=== PATIENT | female | born 1935 | race Caucasian/White ===

== ENCOUNTER 2016-05-21 16:04 | Emergency (ER) | payer MEDICARE ==
[2016-05-21 16:28] VITALS: BP 131/76
[2016-05-21] MEDS ORDERED: Ondansetron INJ* 2 MG/ML VIAL IV ONE (16:34)
[2016-05-21] MEDS ORDERED: Meclizine TAB* 12.5 MG PO ONE (16:34)
--- NOTE | 2016-05-21 16:59 | RAD ---
INDICATION: Dizziness. COMPARISON: Comparison is made with a prior MRI of the brain from January 22, 2014. TECHNIQUE: Contiguous axial sections of the brain were obtained from the skull base to the vertex without contrast. FINDINGS: The ventricles, cisterns and sulci are enlarged consistent with diffuse atrophy. There are multiple focal areas of decreased density in the subcortical and periventricular white matter suggestive of moderate chronic small vessel ischemic changes. There is no evidence for hemorrhage. No significant focal osseous abnormality is seen. The visualized portion of the paranasal sinuses and mastoid air cells appear clear. IMPRESSION: 1. NO EVIDENCE FOR GROSS ACUTE INFARCT, MASS EFFECT OR HEMORRHAGE. 2. ATROPHY AND FINDINGS CONSISTENT WITH MODERATE CHRONIC SMALL VESSEL ISCHEMIC CHANGES.
--- NOTE | 2016-05-21 17:37 | RAD ---
INDICATION: Dizziness. COMPARISON: Comparison is made with a prior study from December 02, 2015. Correlation is also made with a prior exam from December 28, 2012. TECHNIQUE: AP and lateral views of the chest were obtained. FINDINGS: The heart is within normal limits in size. There is a prosthetic heart valve present. The lungs are underinflated. There is a calcified granuloma which projects over the left upper lobe which is unchanged. There is a small infiltrate at the right lung base. No pleural effusion is seen. The patient is status post left axillary node dissection. IMPRESSION: SMALL RIGHT BASILAR INFILTRATE.
[2016-05-21] MEDS ORDERED: Meclizine TAB* 12.5 MG ONE (18:13)
[2016-05-21 18:20] LABS: Hematocrit 39 % (35-47); Hemoglobin 12.8 g/dl (12.0-16.0); Mean Corpuscular HGB Conc 33 g/dl (31-36); Mean Corpuscular Hemoglobin 30 pg (27-31); Mean Corpuscular Volume 91 fL (80-97); Mean Platelet Volume 9 um3 (7.4-10.4); Red Blood Count 4.26 10^6/ul (4.0-5.4); Red Cell Distribution Width 14 % (10.5-15); White Blood Count 7.7 10^3/ul (3.5-10.8)
[2016-05-21] MEDS ORDERED: DOXYcycline CAP(*) 100 MG PO ONE (18:27)
[2016-05-21 18:38] LABS: Albumin 4.2 g/dL (3.2-5.2); BUN/Creatinine Ratio 20.2 (8-20); C Reactive Protein 1.71 mg/L (< 5.00); Calcium 9.2 mg/dL (8.6-10.3); EGFR African American 73.5 (>60); EGFR Non-African American 57.2 (>60); Globulin 2.8 g/dL (2-4); Magnesium 2.2 mg/dL (1.9-2.7); Potassium 3.4 mmol/L (3.5-5.0); Total Bilirubin 0.3 mg/dL (0.2-1.0)
[2016-05-21 18:39] LABS: Urine Bacteria Absent (Absent); Urine Bilirubin Negative (Negative); Urine Glucose Negative (Negative); Urine Nitrite Negative (Negative)
[2016-05-21 18:53] LABS: TSH (Thyroid Stimulating Horm) 1.73 mcIU/mL (0.34-5.60)
[2016-05-21] MEDS ORDERED: Potassium Chlor TAB* 20 MEQ TAB.ER PO ONE (19:01)
--- NOTE | 2016-05-21 20:08 | ED ---
Edward Mahmood Billy, scribed for Issa Cisneros MD on 05/21/16 at 1633 . Dizziness - HPI Summary HPI Summary: Patient is an 80 year-old male coming to [facility] presenting with onset of room- spinning dizziness starting earlier this morning while she was at [facility]. She states that her symptoms are worse with positional changes. She also reports a mild left frontal headache and blurred vision. Nausea, denies vomiting. She denies any CP, palpitations. She denies any pain. Denies sore throat, earache, or nasal congestion. She states she is unable to walk, secondary to dizziness. She has had similar episodes in the past. - History Of Current Complaint Chief Complaint: EDDizziness Stated Complaint: DIZZINESS Time Seen by Provider: 05/21/16 16:30 Hx Obtained From: Patient Onset/Duration: Still Present, Gradually Timing: Constant Severity Initially: Moderate Severity Currently: Moderate Character: Room Spinning Aggravating Factor(s): Position Change Alleviating Factor(s): Nothing Associated Signs And Symptoms: Positive: Nausea, Visual Changes, Inability to Walk, Other: - headache. Negative: Vomiting, Chest Pain, Palpitations - Allergies/Home Medications Allergies/Adverse Reactions: Allergies Allergy/AdvReac Type Severity Reaction Status Date / Time Celecoxib [From Celebrex] Allergy Hives Verified 12/02/15 11:52 Erythromycin Allergy Hives Verified 12/02/15 11:52 Latex Allergy Hives Verified 12/02/15 11:52 Levofloxacin [From Levaquin] Allergy Rash Verified 12/02/15 11:52 Methylprednisolone Allergy Hives Verified 12/02/15 11:52 NSAIDs Allergy Hives Verified 12/02/15 11:52 Penicillin G Allergy Hives Verified 12/02/15 11:52 Pseudoephedrine Allergy Hallucinati Verified 12/02/15 11:52 ons Rivastigmine [From Exelon] Allergy Hallucinati Verified 12/02/15 11:52 ons Tomato Allergy Unknown Verified 12/02/15 11:52 Reaction Details custaceans Allergy Vomiting Uncoded 12/02/15 11:52 lactose intolerant Allergy Unknown Uncoded 12/02/15 11:52 Reaction Details peanut butter Allergy Unknown Uncoded 12/02/15 11:52 Reaction Details PMH/Surg Hx/FS Hx/Imm Hx Endocrine/Hematology History: Reports: Hx Thyroid Disease Denies: Hx Diabetes Cardiovascular History: Reports: Hx Hypertension, Other Cardiovascular Problems/ Disorders - AORTIC VALVE REPLACEMENT Denies: Hx Congestive Heart Failure, Hx Deep Vein Thrombosis, Hx Myocardial Infarction, Hx Pacemaker/ICD Respiratory History: Reports: Hx Asthma Denies: Hx Chronic Obstructive Pulmonary Disease (COPD), Hx Lung Cancer, Hx Pneumonia, Hx Pulmonary Embolism, Other Respiratory Problems/Disorders GI History: Denies: Hx Gall Bladder Disease, Hx Gastrointestinal Bleed, Hx Ulcer, Hx Urosepsis History: Denies: Hx Kidney Stones, Hx Renal Disease Musculoskeletal History: Reports: Hx Osteoporosis Sensory History: Reports: Hx Hearing Aid Neurological History: Reports: Hx Dementia Denies: Hx Migraine, Hx Seizures, Hx Transient Ischemic Attacks (TIA) Psychiatric History: Denies: Hx Anxiety, Hx Depression, Hx Panic Disorder, Hx Schizophrenia, Hx Bipolar Disorder - Cancer History Cancer Type, Location and Year: breast cancer Hx Chemotherapy: Yes - 2003 AFTER RT MASTECTOMY Hx Radiation Therapy: Yes - 1994 S/P LT LUMPECTOMY & RADIATION - Surgical History Surgery Procedure, Year, and Place: 1994 LT LUMPECTOMY S/P RADIATION NO CHEMOTHERAPY. 2003 RT MASTECTOMY S/P CHEMOTHERAPY FOR 2 YRS. HEART VALVE REPLACEMENT PIG VALVE (PORCINE). HIP REPLACEMENT. BILATERAL KNEE REPLACEMENT Infectious Disease History: Denies: Hx Clostridium Difficile, Hx Hepatitis, Hx Human Immunodeficiency Virus (HIV), Hx of Known/Suspected MRSA, Hx Shingles, Hx Tuberculosis, Traveled Outside the [place] in Last 30 Days - Family History Known Family History: Positive: Cardiac Disease, Hypertension, Diabetes - Social History Alcohol Use: None Substance Use Type: Reports: None Hx Tobacco Use: No Smoking Status (MU): Never Smoked Tobacco Review of Systems Positive: Blurred Vision Negative: Sore Throat, Ear Ache, Nasal Discharge Negative: Palpitations, Chest Pain Positive: Nausea. Negative: Vomiting Neurological: Other - dizziness Positive: Headache All Other Systems Reviewed And Are Negative: Yes Physical Exam Triage Information Reviewed: Yes Vital Signs On Initial Exam: Initial Vitals Temp Pulse Resp BP Pulse Ox 98.2 F 88 20 131/76 96 05/21/16 16:22 05/21/16 16:22 05/21/16 16:22 05/21/16 16:22 05/21/16 16:22 Vital Signs Reviewed: Yes Diagnostics - Vital Signs Vital Signs Temp Pulse Resp BP Pulse Ox 05/21/16 16:22 98.2 F 88 20 131/76 96 - Laboratory Lab Results: Lab Results 05/21/16 05/21/16 05/21/16 Range/Units 17:27 17:44 17:44 WBC 7.7 (3.5-10.8) 10^3/ul RBC 4.26 (4.0-5.4) 10^6/ul Hgb 12.8 (12.0-16.0) g/dl Hct 39 (35-47) % MCV 91 (80-97) fL MCH 30 (27-31) pg MCHC 33 (31-36) g/dl RDW 14 (10.5-15) % Plt Count 232 (150-450) 10^3/ul MPV 9 (7.4-10.4) um3 Neut % (Auto) 55.3 (38-83) % Lymph % (Auto) 32.4 (25-47) % [place] % (Auto) 10.8 H (1-9) % Eos % (Auto) 0.9 (0-6) % Baso % (Auto) 0.6 (0-2) % Absolute Neuts (auto) 4.3 (1.5-7.7) 10^3/ul Absolute Lymphs (auto) 2.5 (1.0-4.8) 10^3/ul Absolute Monos (auto) 0.8 (0-0.8) 10^3/ul Absolute Eos (auto) 0.1 (0-0.6) 10^3/ul Absolute Basos (auto) 0 (0-0.2) 10^3/ul Absolute Nucleated RBC 0 10^3/ul Nucleated RBC % 0 Sodium 137 (133-145) mmol/L Potassium 3.4 L (3.5-5.0) mmol/L Chloride 102 (101-111) mmol/L Carbon Dioxide 28 (22-32) mmol/L Anion Gap 7 (2-11) mmol/L BUN 19 (6-24) mg/dL Creatinine 0.94 (0.51-0.95) mg/dL Est GFR ( Amer) 73.5 (>60) Est GFR (Non-Af Amer) 57.2 (>60) BUN/Creatinine Ratio 20.2 H (8-20) Glucose 102 H (70-100) mg/dL Lactic Acid (0.5-2.0) mmol/L Calcium 9.2 (8.6-10.3) mg/dL Magnesium 2.2 (1.9-2.7) mg/dL Total Bilirubin 0.30 (0.2-1.0) mg/dL AST 18 (13-39) U/L ALT 11 (7-52) U/L Alkaline Phosphatase 55 (34-104) U/L Troponin I 0.00 (<0.04) ng/mL C-Reactive Protein 1.71 (< 5.00) mg/L B-Natriuretic Peptide ( - 100) pg/mL Total Protein 7.0 (6.4-8.9) g/dL Albumin 4.2 (3.2-5.2) g/dL Globulin 2.8 (2-4) g/dL Albumin/Globulin Ratio 1.5 (1-3) TSH 1.73 (0.34-5.60) mcIU/mL Urine Color Yellow Urine Appearance Cloudy Urine pH 7.0 (5-9) Ur Specific [place] 1.014 (1.010-1.030) Urine Protein Negative (Negative) Urine Ketones Negative (Negative) Urine Blood Negative (Negative) Urine Nitrate Negative (Negative) Urine Bilirubin Negative (Negative) Urine Urobilinogen Negative (Negative) Ur Leukocyte Esterase Trace H (Negative) Urine WBC (Auto) 1+(6-10/hpf) H (Absent) Urine RBC (Auto) Absent (Absent) Urine Bacteria Absent (Absent) Urine Glucose Negative (Negative) 05/21/16 05/21/16 Range/Units 17:44 17:44 WBC (3.5-10.8) 10^3/ul RBC (4.0-5.4) 10^6/ul Hgb (12.0-16.0) g/dl Hct (35-47) % MCV (80-97) fL MCH (27-31) pg MCHC (31-36) g/dl RDW (10.5-15) % Plt Count (150-450) 10^3/ul MPV (7.4-10.4) um3 Neut % (Auto) (38-83) % Lymph % (Auto) (25-47) % [place] % (Auto) (1-9) % Eos % (Auto) (0-6) % Baso % (Auto) (0-2) % Absolute Neuts (auto) (1.5-7.7) 10^3/ul Absolute Lymphs (auto) (1.0-4.8) 10^3/ul Absolute Monos (auto) (0-0.8) 10^3/ul Absolute Eos (auto) (0-0.6) 10^3/ul Absolute Basos (auto) (0-0.2) 10^3/ul Absolute Nucleated RBC 10^3/ul Nucleated RBC % Sodium (133-145) mmol/L Potassium (3.5-5.0) mmol/L Chloride (101-111) mmol/L Carbon Dioxide (22-32) mmol/L Anion Gap (2-11) mmol/L BUN (6-24) mg/dL Creatinine (0.51-0.95) mg/dL Est GFR ( Amer) (>60) Est GFR (Non-Af Amer) (>60) BUN/Creatinine Ratio (8-20) Glucose (70-100) mg/dL Lactic Acid 0.7 (0.5-2.0) mmol/L Calcium (8.6-10.3) mg/dL Magnesium (1.9-2.7) mg/dL Total Bilirubin (0.2-1.0) mg/dL AST (13-39) U/L ALT (7-52) U/L Alkaline Phosphatase (34-104) U/L Troponin I (<0.04) ng/mL C-Reactive Protein (< 5.00) mg/L B-Natriuretic Peptide 110 H ( - 100) pg/mL Total Protein (6.4-8.9) g/dL Albumin (3.2-5.2) g/dL Globulin (2-4) g/dL Albumin/Globulin Ratio (1-3) TSH (0.34-5.60) mcIU/mL Urine Color Urine Appearance Urine pH (5-9) Ur Specific Anderson (1.010-1.030) Urine Protein (Negative) Urine Ketones (Negative) Urine Blood (Negative) Urine Nitrate (Negative) Urine Bilirubin (Negative) Urine Urobilinogen (Negative) Ur Leukocyte Esterase (Negative) Urine WBC (Auto) (Absent) Urine RBC (Auto) (Absent) Urine Bacteria (Absent) Urine Glucose (Negative) Result Diagrams: 05/21/16 17:44 05/21/16 17:44 Lab Statement: Any lab studies that have been ordered have been reviewed, and results considered in the medical decision making process. - Radiology CXR Radiology Interpretation Completed By: Radiologist - Small right basilar infiltrate. - CT brain CT Interpretation Completed By: Radiologist - 1. NO EVIDENCE FOR GROSS ACUTE INFARCT, MASS EFFECT OR HEMORRHAGE. 2. ATROPHY AND FINDINGS CONSISTENT WITH MODERATE CHRONIC SMALL VESSEL ISCHEMIC CHANGES. Dizzy Course/Dx - Course Assessment/Plan: Patient is an 80 year-old male coming to [facility] presenting with onset of room-spinning dizziness starting earlier this morning while she was at [employer]. She states that her symptoms are worse with positional changes. She also reports a mild left frontal headache and blurred vision. Nausea, denies vomiting. She denies any CP, palpitations. She denies any pain. Denies sore throat, earache, or nasal congestion. She states she is unable to walk, secondary to dizziness. She has had similar episodes in the past. Bloodwork WNL except for potassium of 3.4. UA positive for UTI. CXR shows early pneumonia. CT brain shows no acute intracranial pathology. In the ED course, patient was given IV fluids, Zofran for N/V, and antivert for dizziness, and doxycycline for pneumonia. The patient has multiple allergies, which is why I chose doxycycline. After these medications, her symptoms have improved. She is no longer dizzy. She will be discharged with her daughter and son to follow up with PCP. She was given Rx for meclizine and doxycycline. I discussed all the findings and test results with the patient. Patient was instructed to return to the emergency room immediately if any of the symptoms return or worsens. Patient understands and agrees. Plan of care was discussed with the patient and patient understands and agrees with the plan of care. All questions were answered at patient satisfaction. There were no further complaints or concerns. Patient is alert and oriented x 3. Patient vital signs are stable. Patient is to follow up with primary care physician in the next 2 to 3 days. Patient understands and agrees. - Diagnoses Provider Diagnoses: Vertigo, UTI (urinary tract infection), Pneumonia Discharge - Discharge Plan Condition: Stable Disposition: HOME Prescriptions: DOXYcycline CAP(*) [DOXYcycline 100MG CAP(*)] 100 mg PO BID #20 cap Meclizine TAB* [Antivert 12.5 TAB*] 25 mg PO TID PRN #20 tab PRN Reason: Vertigo Patient Education Materials: Urinary Tract Infection in Women (ED), Vertigo (ED ), Pneumonia (ED) Referrals: Yudith Grey MD [Primary Care Provider] - The documentation as recorded by the Edward gordon Billy accurately reflects the service I personally performed and the decisions made by me, Issa Cisnreos MD.
== END 2016-05-21 20:09 | disposition home or self-care (01) ==
LOC: ED 16:04
DX: R42 Dizziness and giddiness (principal); H53.8 Other visual disturbances; R11.0 Nausea; R51 Headache
CPT/HCPCS: 36415; 70450; 71020; 80053; 81003; 81015; 83605; 83735; 83880; 84443; 84484; 85025; 86140; 87086; 96374; 99282; A9270-GY; J2405

== ENCOUNTER 2017-11-22 14:09 | Emergency (ER) | payer MEDICARE, OTHER ==
[2017-11-22 14:29] VITALS: BP 122/72
--- NOTE | 2017-11-22 15:13 | ED ---
Head Injury - HPI Summary HPI Summary: This is heidi Bowen documenting for attending Leon Calixto MD. This patient is an 82 year old F presenting to [facility] [place] with a chief complaint of a fall 11/19/2017. The patient remembers falling and describes the room she fell in as being completely dark. However, her daughter says that the room is not typically completely dark. The patients aid said that she did not appear concussed. The patient reports pain in her L eye, neck pain, an abrasion and bruising on her forehead and left eye, and her daughter reports worsening confusion. Patient denies fever, chills, weakness, and numbness. The daughter reports that the patient has started forgetting what she is doing mid-task. The patient went to get her walker but forgot intermediate there. The daughter also had to remind her to eat her lunch and take pills earlier today. The patient is not on any blood thinners. 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 She denies any PMHx of A Fib or irregular heart rhythm. She has had a CABG with Valentina Lagunas MD. The patient is not on any blood thinners. - History Of Current Complaint Chief Complaint: UCHeadInjury Stated Complaint: FELL HIT HEAD Time Seen by Provider: 11/22/17 14:44 Hx Obtained From: Patient, Family/[employer] Scientist - Daughter Mechanism Of Injury: Fall From A Standing Position Onset/Duration: Started Days Ago - 11/19/2017 Onset of Pain: Immediate, Post Accident Severity Currently: Mild Severity Initially: Mild Pain Intensity: 0 Pain Scale Used: 0-10 Numeric Location of Head Injury: Other: - L side of forehead and above the L eye Associated Signs And Symptoms: Confusion - worsening, Neck Pain, Bruising - on forehead and above L eye, Other: - abrasian on forehead and above L eye. Denies fever, chills, weakness, and numbness - Allergies/Home Medications Allergies/Adverse Reactions: Allergies Allergy/AdvReac Type Severity Reaction Status Date / Time celecoxib [From Celebrex] Allergy Hives Verified 11/22/17 14:44 erythromycin base Allergy Hives Verified 11/22/17 14:44 latex Allergy Hives Verified 11/22/17 14:44 levofloxacin [From Levaquin] Allergy Rash Verified 11/22/17 14:44 methylprednisolone Allergy Hives Verified 11/22/17 14:44 NSAIDS (Non-Steroidal Allergy Hives Verified 11/22/17 14:44 Anti-Inflamma pseudoephedrine Allergy Hallucinati Verified 11/22/17 14:44 ons rivastigmine [From Exelon] Allergy Hallucinati Verified 11/22/17 14:44 ons tomato Allergy Unknown Verified 11/22/17 14:44 Reaction Details custaceans Allergy Vomiting Uncoded 11/22/17 14:44 lactose intolerant Allergy Unknown Uncoded 11/22/17 14:44 Reaction Details peanut butter Allergy Unknown Uncoded 11/22/17 14:44 Reaction Details PMH/Surg Hx/FS Hx/Imm Hx Endocrine/Hematology History: Reports: Hx Thyroid Disease Denies: Hx Diabetes Cardiovascular History: Reports: Hx Hypertension, Other Cardiovascular Problems/ Disorders - AORTIC VALVE REPLACEMENT Denies: Hx Congestive Heart Failure, Hx Deep Vein Thrombosis, Hx Myocardial Infarction, Hx Pacemaker/ICD Respiratory History: Reports: Hx Asthma Denies: Hx Chronic Obstructive Pulmonary Disease (COPD), Hx Lung Cancer, Hx Pneumonia, Hx Pulmonary Embolism, Other Respiratory Problems/Disorders GI History: Denies: Hx Gall Bladder Disease, Hx Gastrointestinal Bleed, Hx Ulcer, Hx Urosepsis History: Denies: Hx Kidney Stones, Hx Renal Disease Musculoskeletal History: Reports: Hx Osteoporosis Sensory History: Reports: Hx Hearing Aid Neurological History: Reports: Hx Dementia Denies: Hx Migraine, Hx Seizures, Hx Transient Ischemic Attacks (TIA) Psychiatric History: Denies: Hx Anxiety, Hx Depression, Hx Panic Disorder, Hx Schizophrenia, Hx Bipolar Disorder - Cancer History Cancer Type, Location and Year: Breast cancer Hx Chemotherapy: Yes - 2004 AFTER RT MASTECTOMY Hx Radiation Therapy: Yes - 1994 S/P LT LUMPECTOMY & RADIATION - Surgical History Surgery Procedure, Year, and Place: 1994 LT LUMPECTOMY S/P RADIATION NO CHEMOTHERAPY. 2003 RT MASTECTOMY S/P CHEMOTHERAPY FOR 2 YRS. HEART VALVE REPLACEMENT PIG VALVE (PORCINE). HIP REPLACEMENT. BILATERAL KNEE REPLACEMENT Infectious Disease History: No Infectious Disease History: Denies: Hx Clostridium Difficile, Hx Hepatitis, Hx Human Immunodeficiency Virus (HIV), Hx of Known/Suspected MRSA, Hx Shingles, Hx Tuberculosis, Traveled Outside the [place] in Last 30 Days - Family History Known Family History: Positive: Cardiac Disease, Hypertension, Diabetes, Other - Stroke, Alzheimer's - Social History Occupation: Retired Lives: Assisted Living - Lives independently at [place] with an aid checking in on her Alcohol Use: None Substance Use Type: Reports: None Hx Tobacco Use: No Smoking Status (MU): Never Smoked Tobacco Review of Systems Negative: Fever, Chills Positive: Other - pain in L eye Positive: Other - neck pain, an abrasion and bruising on her forehead and left eye Neurological: Other - Worsening confusion. Aphasia from Pick's disease. Negative: Weakness, Numbness All Other Systems Reviewed And Are Negative: Yes Physical Exam - Summary Physical Exam Summary: General: well-appearing, no pain distress Skin: warm, color reflects adequate perfusion, dry Head: Normal. Ecchymosis around left forehead. Eyes: EOMI, MARILEE. Ecchymosis around left orbit. ENT: normal Neck: supple, nontender Respiratory: CTA, breath sounds present Cardiovascular: RRR Abdomen: soft, nontender Bowel: present Musculoskeletal: normal, strength/ROM intact Neurological: sensory/motor intact, A&O x3 Psychological: affect/mood appropriate Triage Information Reviewed: Yes Vital Signs On Initial Exam: Initial Vitals Temp Pulse Resp BP Pulse Ox 97.9 F 106 18 122/72 100 11/22/17 14:23 11/22/17 14:23 11/22/17 14:23 11/22/17 14:23 11/22/17 14:23 Vital Signs Reviewed: Yes Diagnostics - Vital Signs Vital Signs Temp Pulse Resp BP Pulse Ox 11/22/17 14:23 97.9 F 106 18 122/72 100 - Laboratory Lab Statement: Any lab studies that have been ordered have been reviewed, and results considered in the medical decision making process. - CT Cervical Spine CT CT Interpretation Completed By: Radiologist - No fracture of the cervical spine is noted. Mild grade 1 spondylolisthesis of C4 on 5 is noted likely due to facet hypertrophy. 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 Physician has reviewed this report. Brain CT CT Interpretation Completed By: Radiologist - CORTICAL ATROPHY AND CHRONIC MICROVASCULAR ISCHEMIC CHANGES. NO ACUTE FINDINGS. Physician has reviewed this report. Maxillofacial CT CT Interpretation Completed By: Radiologist - NO ACUTE FACIAL BONE FRACTURE OR OTHER SPECIFIC ACUTE FINDINGS. Physician has reviewed this report. Head Injury Course/Dx Course Of Treatment: DISCUSSED WITH PATIENT; ED EVAL VERSES CT BRAIN AND UA IN CLINIC WITH LABS WITH RESULTS TOMORROW. THE PATIENT AND DAUGHTER PREFER CLINIC EVAL. THEY WILL GO TO THE ED IF WORSE OVERNIGHT. DISCUSSED CT AND UA RESULTS WITH THE PATIENT AND HER DAUGHTER. LABS DRAWN. F/U PMD; GO TO ED IF WORSE. - Diagnoses Provider Diagnoses: Head injury, UTI (urinary tract infection), Confusion Discharge - Sign-Out/Discharge Documenting (check all that apply): Patient Departure - Discharge Plan Condition: Stable Disposition: HOME Prescriptions: Nitrofurantoin Monohyd/M-Cryst [Macrobid 100 mg Capsule] 100 mg PO BID #14 cap Patient Education Materials: Urinary Tract Infection in Women (ED), Head Injury (ED), Altered Mental Status (ED), Urinary Tract Infection in Older Adults (ED) Referrals: Yudith Grey MD [Primary Care Provider] - Additional Instructions: FOLLOW UP WITH YOUR DOCTOR. GET RECHECKED FOR ANY WORSENING OF YOUR CONDITION; WEAKNESS, NUMBNESS, CONFUSION , FEVER, YOU FEEL ILL OR QUESTIONS OR CONCERNS. - Billing Disposition and Condition Condition: STABLE Disposition: Home
--- NOTE | 2017-11-22 15:33 | RAD ---
INDICATION: Fall COMPARISON: CT brain May 21, 2016 TECHNIQUE: Noncontrast axial source images were acquired from the skull base to the vertex. FINDINGS: Ventricles/sulci: There is cortical atrophy with compensatory dilatation of the CSF spaces. Brain parenchyma: There is no acute focal parenchymal finding, evidence of intracranial mass, or intracranial mass effect. There is underlying chronic microvascular ischemic change. Intracranial hemorrhage:None. Extra-axial spaces: There are no abnormal extra axial fluid collections or evidence of extra-axial mass. Calvarium: There is no calvarial fracture or other calvarial abnormality. Scalp: There is no evidence of scalp or extracalvarial soft tissue abnormality. Paranasal sinuses/mastoid: The paranasal sinuses and mastoid air cells are clear. Other: None. IMPRESSION: CORTICAL ATROPHY AND CHRONIC MICROVASCULAR ISCHEMIC CHANGES. NO ACUTE FINDINGS.
--- NOTE | 2017-11-22 15:36 | RAD ---
Indication: Neck pain after fall. CT of the cervical spine was obtained in the axial plane. Sagittal and coronal reconstructed images were obtained. The skull base demonstrates no evidence of fracture. Mastoid air cells are well aerated. The C1 ring is intact. There is no evidence of fracture. Degenerative changes of the atlantoaxial joint is noted. At C2-C3 and C3-C4 there is no disc protrusion. No central foraminal stenosis is noted. There is grade 1 spondylolisthesis of C4 on 5. Bilateral lytic ridge flattens the thecal sac. No foraminal stenosis is noted. At C5-C6 and C6-C7 spondylitic ridge flattens the thecal sac. Bilateral uncovertebral joint hypertrophy narrows both foramen. Grade 1 spondylolisthesis of C7 on T1 is noted. IMPRESSION: No fracture of the cervical spine is noted. Mild grade 1 spondylolisthesis of C4 on 5 is noted likely due to facet hypertrophy. 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
--- NOTE | 2017-11-22 16:53 | RAD ---
INDICATION: Fall. Left orbital pain COMPARISON: None TECHNIQUE: Axial source images were acquired from the vertex of the mandible through the orbits. Coronal and sagittal reconstructed images were acquired. FINDINGS: Bones: There is no acute facial bone fracture. Orbits: The globes and intraconal structures appear intact. The optic nerves are symmetric. Extraocular muscles appear normal. There is no intraconal inflammatory change or retrobulbar mass.. Paranasal sinuses: The paranasal sinuses are clear. Brain: There are no acute abnormalities of the visualized brain parenchyma. Soft tissues: Normal Other: None The visualized soft tissue elements about the neck appear normal. IMPRESSION: NO ACUTE FACIAL BONE FRACTURE OR OTHER SPECIFIC ACUTE FINDINGS
[2017-11-22 18:40] LABS: ABS Basophils 0 10^3/ul (0-0.2); ABS Eosinophils 0.1 10^3/ul (0-0.6); ABS Lymphocytes 1.7 10^3/ul (1.0-4.8); ABS Monocytes 0.9 10^3/ul (0-0.8); ABS Neutrophils 3.9 10^3/ul (1.5-7.7); ABS Nucleated RBC 0 10^3/ul; Eosinophil % 1.3 % (0-6); Hematocrit 39 % (35-47); Hemoglobin 13.1 g/dl (12.0-16.0); Lymphocyte % 25.5 % (25-47); Mean Corpuscular HGB Conc 34 g/dl (31-36); Mean Corpuscular Hemoglobin 31 pg (27-31); Mean Corpuscular Volume 90 fL (80-97); Mean Platelet Volume 8.9 um3 (7.4-10.4); Nucleated Red Blood Cells % 0; Platelet Count 265 10^3/ul (150-450); Red Blood Count 4.28 10^6/ul (4.00-5.40); Red Cell Distribution Width 14 % (10.5-15); White Blood Count 6.7 10^3/ul (3.5-10.8)
[2017-11-22 19:02] LABS: EGFR Non-African American 68.5 (>60)
--- NOTE | 2017-11-23 07:26 | UC ---
- Progress Note Progress Note: Reviewed blood work as available 11/22/17. While nonurgent, it is important that Ms Wilkinson follow up with her primary care physician, in the next 1-2 weeks, unless otherwise advised by pcp. Seek medical attention for worse or new problems in the meantime. Urine culture results not yet available. Course/Dx - Diagnoses Provider Diagnoses: Head injury, UTI (urinary tract infection), Confusion Discharge - Sign-Out/Discharge Documenting (check all that apply): Post-Discharge Follow Up - Discharge Plan Condition: Stable Disposition: HOME Prescriptions: Nitrofurantoin Monohyd/M-Cryst [Macrobid 100 mg Capsule] 100 mg PO BID #14 cap Patient Education Materials: Urinary Tract Infection in Women (ED), Head Injury (ED), Altered Mental Status (ED), Urinary Tract Infection in Older Adults (ED) Referrals: Yudith Grey MD [Primary Care Provider] - Additional Instructions: FOLLOW UP WITH YOUR DOCTOR. GET RECHECKED FOR ANY WORSENING OF YOUR CONDITION; WEAKNESS, NUMBNESS, CONFUSION , FEVER, YOU FEEL ILL OR QUESTIONS OR CONCERNS. - Billing Disposition and Condition Condition: STABLE Disposition: Home
== END 2017-11-22 16:46 | disposition home or self-care (01) ==
LOC: UCEAST 14:09
DX: S09.90XA Unspecified injury of head, initial encounter (principal); S00.81XA Abrasion of other part of head, initial encounter; S00.83XA Contusion of other part of head, initial encounter; W19.XXXA Unspecified fall, initial encounter; Y93.9 Activity, unspecified; Y92.009 Unspecified place in unspecified non-institutional (private) residence as the place of occurrence of the external cause; M54.2 Cervicalgia; N39.0 Urinary tract infection, site not specified; R41.0 Disorientation, unspecified; Z95.2 Presence of prosthetic heart valve; Z85.3 Personal history of malignant neoplasm of breast; Z96.649 Presence of unspecified artificial hip joint; Z96.653 Presence of artificial knee joint, bilateral; Z88.6 Allergy status to analgesic agent; Z88.1 Allergy status to other antibiotic agents; Z91.040 Latex allergy status; Z88.8 Allergy status to other drugs, medicaments and biological substances; Z91.018 Allergy to other foods; Z82.49 Family history of ischemic heart disease and other diseases of the circulatory system; Z83.3 Family history of diabetes mellitus; Z82.3 Family history of stroke; Z82.0 Family history of epilepsy and other diseases of the nervous system
CPT/HCPCS: 36415; 70450; 70486; 72125; 80053; 81003; 85025; 86140; 87077; 87086; 87186; 99212; G0463

== ENCOUNTER 2018-09-12 16:07 | Inpatient (IN) | payer MEDICARE, OTHER ==
--- NOTE | 2018-09-12 16:26 | ED ---
Upper Extremity Pain - HPI Summary HPI Summary: The patient is an 82 y/o F presenting to [facility] arriving by ambulance from [facility] with a chief complaint of falling onto the left side with prominent injury in the LUE at the shoulder right before arrival. She states that she was walking in the parking lot when looked up and saw her friend but then fell all of a sudden. She had 5mg morphine in the ambulance, but her pain is still rated 8/10 in severity. The pain is aggravated by movement and alleviated by rest. She denies left forearm pain and hip pain. She is unsure if she hit her head or not, but her daughter reports that there were multiple witnesses, and she did not hit her head. Hx of dementia, HTN. - History of Current Complaint Stated Complaint: FALL/SHOULDER INJURY PER EMS Time Seen by Provider: 09/12/18 16:12 Hx Obtained From: Patient Mechanism Of Injury: Fall From A Standing Position Onset/Duration: Started Minutes Ago, Still Present Timing: Lasting Minutes Severity Initially: Moderate Severity Currently: Moderate Pain Location: Shoulder - left Character: Aching Aggravating Factor(s): Movement Alleviating Factor(s): Rest Associated Signs & Symptoms: Positive: Other - NEGATIVE: hip pain, left forearm pain; unsure if there was head injury - Allergies/Home Medications Allergies/Adverse Reactions: Allergies Allergy/AdvReac Type Severity Reaction Status Date / Time celecoxib [From Celebrex] Allergy Hives Verified 09/12/18 16:30 erythromycin base Allergy Hives Verified 09/12/18 16:30 latex Allergy Hives Verified 09/12/18 16:30 levofloxacin [From Levaquin] Allergy Rash Verified 09/12/18 16:30 methylprednisolone Allergy Hives Verified 09/12/18 16:30 NSAIDS (Non-Steroidal Allergy Hives Verified 09/12/18 16:30 Anti-Inflamma pseudoephedrine Allergy Hallucinati Verified 09/12/18 16:30 ons rivastigmine [From Exelon] Allergy Hallucinati Verified 09/12/18 16:30 ons tomato Allergy Unknown Verified 09/12/18 16:30 Reaction Details custaceans Allergy Vomiting Uncoded 11/22/17 14:44 lactose intolerant Allergy Unknown Uncoded 11/22/17 14:44 Reaction Details peanut butter Allergy Unknown Uncoded 11/22/17 14:44 Reaction Details Home Medications: Home Medications Acetaminophen [Acetaminophen Extra Strength] 500 mg PO Q6H PRN 09/12/18 [ History Confirmed 09/12/18] Fexofenadine HCl [Allergy Relief 24Hr] 180 mg PO DAILY 09/12/18 [History Confirmed 09/12/18] Losartan TAB* [Cozaar TAB*] 50 mg PO DAILY 09/12/18 [History Confirmed 09/12/18] Multivitamin/Iron/Folic Acid [Centrum Complete Multivit Tab] 1 each PO DAILY [History Confirmed 09/12/18] Sertraline* [Zoloft*] 25 mg PO DAILY 09/12/18 [History Confirmed 09/12/18] PMH/Surg Hx/FS Hx/Imm Hx Endocrine/Hematology History: Reports: Hx Thyroid Disease Denies: Hx Diabetes Cardiovascular History: Reports: Hx Hypertension, Other Cardiovascular Problems/ Disorders - AORTIC VALVE REPLACEMENT Denies: Hx Congestive Heart Failure, Hx Deep Vein Thrombosis, Hx Myocardial Infarction, Hx Pacemaker/ICD Respiratory History: Reports: Hx Asthma Denies: Hx Chronic Obstructive Pulmonary Disease (COPD), Hx Lung Cancer, Hx Pneumonia, Hx Pulmonary Embolism, Other Respiratory Problems/Disorders GI History: Denies: Hx Gall Bladder Disease, Hx Gastrointestinal Bleed, Hx Ulcer, Hx Urosepsis History: Denies: Hx Kidney Stones, Hx Renal Disease Musculoskeletal History: Reports: Hx Osteoporosis Sensory History: Reports: Hx Hearing Aid Neurological History: Reports: Hx Dementia Denies: Hx Migraine, Hx Seizures, Hx Transient Ischemic Attacks (TIA) Psychiatric History: Denies: Hx Anxiety, Hx Depression, Hx Panic Disorder, Hx Schizophrenia, Hx Bipolar Disorder - Cancer History Cancer Type, Location and Year: Breast cancer Hx Chemotherapy: Yes - 2004 AFTER RT MASTECTOMY Hx Radiation Therapy: Yes - 1994 S/P LT LUMPECTOMY & RADIATION - Surgical History Surgery Procedure, Year, and Place: 1994 LT LUMPECTOMY S/P RADIATION NO CHEMOTHERAPY. 2003 RT MASTECTOMY S/P CHEMOTHERAPY FOR 2 YRS. HEART VALVE REPLACEMENT PIG VALVE (PORCINE). HIP REPLACEMENT. BILATERAL KNEE REPLACEMENT Infectious Disease History: Denies: Hx Clostridium Difficile, Hx Hepatitis, Hx Human Immunodeficiency Virus (HIV), Hx of Known/Suspected MRSA, Hx Shingles, Hx Tuberculosis - Family History Known Family History: Positive: Cardiac Disease, Hypertension, Diabetes, Other - Stroke, Alzheimer's - Social History Alcohol Use: None Hx Substance Use: No Substance Use Type: Reports: None Hx Tobacco Use: No Smoking Status (MU): Never Smoked Tobacco Do You Chew or Dip Tobacco: No Have You Chewed or Dipped Tobacco in the LAST YEAR: No Have You Smoked in the Last Year: No Review of Systems Positive: Other - POSITIVE: left shoulder pain; NEGATIVE: hip pain, left forearm pain Neurological: Other - possible head injury and LOC All Other Systems Reviewed And Are Negative: Yes Physical Exam - Summary Physical Exam Summary: VITAL SIGNS: Reviewed. GENERAL: Patient is a well-developed and nourished female who is lying comfortable in the stretcher. Patient is not in any acute respiratory distress. HEAD AND FACE: No signs of trauma. No ecchymosis, hematomas or skull depressions. No sinus tenderness. EYES: PERRLA, EOMI x 2, No injected conjunctiva, no nystagmus. EARS: Hearing grossly intact. Ear canals and tympanic membranes are within normal limits. MOUTH: Oropharynx within normal limits. NECK: Supple, trachea is midline, no adenopathy, no JVD, no carotid bruit, no c- spine tenderness, neck with full ROM. CHEST: Symmetric, no tenderness at palpation LUNGS: Clear to auscultation bilaterally. No wheezing or crackles. CVS: Regular rate and rhythm, S1 and S2 present, no murmurs or gallops appreciated. ABDOMEN: Soft, non-tender. No signs of distention. No rebound no guarding, and no masses palpated. Bowel sounds are normal. EXTREMITIES: Decreased ROM in LUE secondary to pain but otherwise FROM in all major joints, no edema, no cyanosis or clubbing. Neurovasculature intact. NEURO: Alert and confused consistent with dementia. Speech is normal and follows commands. SKIN: Dry and warm. GCS: 15. Triage Information Reviewed: Yes Vital Signs Reviewed: Yes - [place] Coma Scale Best Eye Response: 4 - Spontaneous Best Motor Response: 6 - Obeys Commands Best Verbal Response: 5 - Oriented Coma Scale Total: 15 Diagnostics - Laboratory Result Diagrams: 09/12/18 16:39 09/12/18 16:39 Lab Statement: Any lab studies that have been ordered have been reviewed, and results considered in the medical decision making process. - Radiology L Shoulder XR Radiology Interpretation Completed By: Radiologist Summary of Radiographic Findings: Comminuted and displaced fractures of the humeral head. ED physician has reviewed this report. - CT Cervical Spine CT CT Interpretation Completed By: Radiologist Summary of CT Findings: 1. Osteopenia. 2. Degenerative disc disease and osteoarthritis. 3. No acute osseous injury to the cervical spine. ED physician has reviewed this report. Brain CT CT Interpretation Completed By: Radiologist Summary of CT Findings: No acute intracranial pathology. Chronic small vessel ischemic change. ED physician has reviewed this report. - EKG 1637 Cardiac Rate: NL - 85 BPM EKG Rhythm: Sinus Rhythm Summary of EKG Findings: Nml axis, no ST elevations Re-Evaluation - Re-Evaluation First Eval Re-Evaluation Time: 18:50 Comment: Since the patient is unable to walk independently without a walker at home, we discussed admission. Course/Dx - Course Assessment/Plan: The patient is an 82 y/o F presenting to [facility] arriving by ambulance from [facility] with a chief complaint of falling onto the left side with prominent injury in the LUE at the shoulder right before arrival. She states that she was walking in the parking lot when looked up and saw her friend but then fell all of a sudden. She had 5mg morphine in the ambulance, but her pain is still rated 8/10 in severity. The pain is aggravated by movement and alleviated by rest. She denies left forearm pain and hip pain. She is unsure if she hit her head or not, but her daughter reports that there were multiple witnesses, and she did not hit her head. Hx of dementia, HTN. Blood test results without any significant abnormality except for WBCs of 11.5, glucose of 117, BUN of 29, and troponin of 0.00. Head CT impression: No acute interconnected pathology. Chronic small vessel ischemic changes. C-spine CT impression: Osteopenia, degenerative disc disease and osteoarthritis. No acute osseous injury to the cervical spine. X-ray of the left shoulder he impression: Comminuted and displaced fracture of the humeral head. In the ED course the patient was given [place] for pain, and she was placed in a shoulder immobilizer. I discussed my physical exam, findings and test results with Dr. Peacock from the hospitalist services, and she agrees to admit patient to his services. ED physician has reviewed this report. - Diagnoses Provider Diagnoses: Fx humeral neck, Fall - Physician Notifications Discussed Care of Patient With: Brittany Peacock - hospitalist Time Discussed With Above Provider: 18:45 Instructed by Provider To: Other - I spoke with Dr. Peacock concerning the patient' s case; she accepts the patient for admission at this time. Discharge - Sign-Out/Discharge Documenting (check all that apply): Patient Departure - Patient is accepted for admission. Patient Received Moderate/Deep Sedation with Procedure: No - Discharge Plan Condition: Stable Disposition: ADMITTED TO [facility] Referrals: Yudith Grey MD [Primary Care Provider] - - Billing Disposition and Condition Condition: STABLE Disposition: Admitted to [facility] - Attestation Statements Document Initiated by Scribe: Yes Documenting Scribe: Kae Whelan Provider For Whom Jacquie is Documenting (Include Credential): Dr. Issa Cisneros MD Scribe Attestation: Kae Mahmood, scrlindaed for Dr. Issa Cisneros MD on 09/12/18 at 1846. Scribe Documentation Reviewed: Yes Provider Attestation: The documentation as recorded by the Kae gordon accurately reflects the service I personally performed and the decisions made by me, Dr. Issa Cisneros MD Status of Scribe Document: Ready
[2018-09-12 16:49] LABS: ABS Basophils 0.1 10^3/ul (0-0.2); ABS Eosinophils 0.1 10^3/ul (0-0.6); ABS Lymphocytes 2.6 10^3/ul (1.0-4.8); ABS Neutrophils 7.8 10^3/ul (1.5-7.7); Eosinophil % 1.1 %; Hematocrit 37 % (35-47); Hemoglobin 12.2 g/dL (12.0-16.0); Lymphocyte % 22.5 %; Mean Corpuscular HGB Conc 33 g/dL (31-36); Mean Corpuscular Hemoglobin 31 pg (27-31); Mean Corpuscular Volume 93 fL (80-97); Mean Platelet Volume 8.7 fL (7.4-10.4); Nucleated Red Blood Cells % 0.1; Platelet Count 260 10^3/uL (150-450); Red Blood Count 3.94 10^6 /uL (3.70-4.87); Red Cell Distribution Width 14 % (10.5-15); White Blood Count 11.5 10^3/uL (3.5-10.8)
[2018-09-12 17:08] LABS: Albumin 4.1 g/dL (3.2-5.2); Albumin/Globulin Ratio 1.4 (1-3); BUN/Creatinine Ratio 36.3 (8-20); C Reactive Protein 1.37 mg/L (<8.01); Calcium 9.5 mg/dL (8.6-10.3); EGFR African American 82.9 (>60); EGFR Non-African American 68.5 (>60); Magnesium 2.2 mg/dL (1.9-2.7); Potassium 3.7 mmol/L (3.5-5.0); Total Bilirubin 0.4 mg/dL (0.2-1.0); Total Protein 7.1 g/dL (6.4-8.9)
[2018-09-12] MEDS ORDERED: HYDROcodone/ACETAMIN 5-325 MG* 1 TAB PO ONE (18:01)
[2018-09-12 18:09] LABS: TSH (Thyroid Stimulating Horm) 3.16 mcIU/mL (0.34-5.60)
[2018-09-12] MEDS ORDERED: NS 0.9% 1000 ML** 1,000 ML IV SCH (19:00)
[2018-09-12] MEDS ORDERED: Polyethylene Glycol 3350* 17 GM PACKET PO PRN (19:10)
[2018-09-12] MEDS ORDERED: oxyCODONE TAB* 5 MG TAB PO PRN (19:12)
[2018-09-12] MEDS ORDERED: Acetaminophen TAB* 325 MG PO SCH (20:00)
--- NOTE | 2018-09-12 22:09 | HP ---
HISTORY AND PHYSICAL: DATE OF ADMISSION: 09/12/18 CHIEF COMPLAINT: Left arm pain. PRIMARY CARE PROVIDER: Dr. Grey. ANIMAL NURSERY WORKER: Sofia Escalera, the patient's daughter. CODE STATUS: DNR. SOURCE OF INFORMATION: HPI is obtained from interview of the patient, chart review, and interview with the patient's adult daughter; the patient is a fair to poor historian. HISTORY OF PRESENT ILLNESS: This is an 82-year-old female with a past medical history of Pick disease and dementia with at baseline slowed response time; although intact comprehension, hypertension, status post aortic valve replacement for history of aortic stenosis, BPPV, history of breast cancer; distant, hypothyroidism, and frequent falls who is presenting to the emergency room on 09/12/18 after a mechanical fall. The patient is a poor historian on the exact events surrounding the fall, although she states she was out with her friends, ambulating with walker as is her baseline, and said that she saw a large truck coming down the road. It caught her attention and she was trying to follow it with her eyes, while her body was going in the other direction. She said that she got dizzy, slipped, and fell and then landed on her left arm that was outstretched. She had immediate pain and the patient who resides at [facility] usually requested that they call the ambulance. EMERGENCY ROOM COURSE: On arrival, vital signs, 97.4, heart rate 92, respiratory rate 14, oxygen sat 94% on room air, and blood pressure is 137/71. Imaging was done of the left shoulder that showed a left humeral displaced fracture. A cervical spine CT was done that shows osteopenia, DJD, and osteoarthritis, and no other acute osseous injuries and a head CT, noncontrast, was done that showed no acute intracranial pathology and with chronic small- vessel ischemic change. Labs were done that were unremarkable with the exception of mild leukocytosis to 11.5. EKG was done that shows normal sinus rhythm with J-point elevation, no reciprocal changes. The hospitalist team was asked to admit the patient for further PT and OT given she ambulates at baseline with both hands and is unable to now use the left hand. Per interview with the daughter, the patient resides at [facility]. She is independent in her activities of daily living; can dress, feed, bathe herself, and ambulates with a walker. She is dependent in her independent ADLs with her daughter doing shopping and advanced cognitive tasks. PAST MEDICAL HISTORY: 1. Pick disease. 2. Osteopenia. 3. Status post aortic valve replacement. 4. Essential hypertension. 5. BPPV. 6. Overactive bladder. 7. History of breast cancer. 8. Hypothyroidism. PAST SURGICAL HISTORY: 1. Status post aortic valve replacement. 2. Status post right mastectomy with prosthesis. 3. Left breast lumpectomies with clips. MEDICATIONS: Prior to admission: 1. Acetaminophen 500 mg p.o. q.6 hours p.r.n. 2. Fexofenadine 180 mg p.o. daily. 3. Fluticasone nasal spray, 2 sprays both nares daily. 4. Montelukast 10 mg p.o. daily. 5. Multivitamin 1 tab p.o. daily. 6. [place] EPA fish oil 1 tab p.o. daily. 7. Aspirin 325 mg p.o. daily. 8. Vitamin D3 at 1000 units p.o. daily. 9. Levothyroxine 50 mcg p.o. daily. 10. Losartan 50 mg p.o. daily. 11. Polyethylene glycol 17 g p.o. daily p.r.n. 12. Rivastigmine patch 9.5 mg 1 patch transdermally daily. 13. Sertraline 25 mg p.o. daily. 14. Simvastatin 20 mg p.o. daily. ALLERGIES: CELEBREX, ERYTHROMYCIN, LACTOSE, LATEX, LEVAQUIN, METHYLPREDNISOLONE , NSAIDs, PEANUTS, SUDAFED, TOMATO, CRUSTACEANS, EXELON PATCH, although the patient reports that this is not a true allergy as she uses it. SOCIAL HISTORY: The patient resides at [facility]. Lifetime nontobacco use. Scant alcohol. Never illicits. FAMILY HISTORY: Father from stroke. Mother with heart disease. REVIEW OF SYSTEMS: Difficult to ascertain secondary to the patient's aphasic underlying neurologic disorder, although roughly just constitutionally negative for fevers or chills. HEENT: Negative for headaches or vision changes. Cardiovascular: Negative for chest pain, palpitations, orthopnea. Respiratory is negative for shortness of breath or cough. GI is positive for chronic IBS- like symptoms with intermittent diarrhea and constipation, mostly related to lactose. Musculoskeletal: Positive for left arm pain. Negative for weakness, numbness, or tingling. Skin: Negative for new rashes or lesions. Neurologic: Negative for focal weakness. Positive for frequent falls. Psychiatric: Negative for delusions, depressions, or anxiety. Endocrine: Negative for polyuria, polydipsia. Heme: Negative for easy bruising, bleeding, or lymphadenopathy. PHYSICAL EXAMINATION GENERAL APPEARANCE: This is a well-appearing elderly woman who is sitting up on the stretcher, in no acute distress. At baseline, she has slowed and delayed responses consistent with her progressive neurologic aphasic disorder. VITAL SIGNS: At time of physical exam, blood pressure is 142/71, pulse rate 93 , oxygen saturation is 97% on room air. HEENT: Pupils are equal and reactive. Sclerae anicteric. Extraocular muscles are intact. Mucous membranes are moist. NECK: Supple with no supraclavicular or cervical lymphadenopathy. PULM: Clear to auscultation bilaterally. CARDIAC: Regular rate and rhythm with no murmurs, rubs, or gallops. ABDOMEN: Belly is soft, nontender, nondistended with normoactive bowel sounds. EXTREMITIES: Her left lower extremity is in a sling and tender to even gentle palpation at left AC. Other 3 limbs move spontaneously and with full range of motion without pain. Bilateral lower extremities without edema and 2+ palpable pulses. NEURO: Cranial nerves II through XII are intact. Follows commands. Oriented to herself, event, and place, although unable to give me specifics about time and with expressive aphasia. SKIN: Without breakdown or ulcers. DIAGNOSTIC STUDIES/LAB DATA: White blood cell count 11.5, hemoglobin 12.2, hematocrit 37, platelets 260. Chemistry: Sodium 139, potassium 3.7, chloride 105, carbon dioxide 27, BUN 29, creatinine 0.8, glucose 117. LFTs unremarkable. TSH 3.16. Imaging: Left shoulder x-rayed with left displaced humeral fracture. Cervical spine CT with DJD, osteopenia, but no acute fracture or dislocation. Brain CT with no intracranial acute pathology and chronic vessel ischemia. EKG is done that shows normal sinus rhythm with no active signs of ischemia. Imaging, labs, and EKG reviewed by myself. ASSESSMENT AND PLAN: This is an 82-year-old female with a past medical history of Pick disease, frequent falls, status post aortic valve replacement, hypertension, hyperlipidemia, hypothyroidism who presented after a mechanical fall on 09/12/18 with a left displaced humeral fracture that will alter significantly the patient's baseline function. 1. Left humeral displaced fracture. Orthopedics is aware of the patient. They will see the patient on hospital day 2. Pain control with around-the- clock Tylenol, p.r.n. oxycodone with bowel regimen, and Lidoderm patch to most painful point. 2. Pick disease. The patient has progressive neurologic expressive aphasia and dementia although is able to understand most of what is being said to her. She requires slow careful explanation. Follows with Dr. Cisneros. We will continue the patient's Exelon patch as per her home medications. We will continue the patient's home Zoloft. 3. Status post aortic valve replacement. No active issues. The patient does not describe a presyncopal event as reason for her falls and seems largely mechanical in the setting of her neurologic disease. We will hold on syncopal workup as HPI does not seem consistent with cardiac or primary neurologic reason for falls beside from deconditioning in the setting of her known Pick disease. 4. Hypertension. We will continue the patient's home losartan. 5. Hypothyroidism. We will continue the patient's home levothyroxine. 6. Hyperlipidemia. We will continue the patient's home simvastatin. 7. Seasonal allergies. We will hold the patient's home montelukast unless requested. 8. DVT prophylaxis. The patient will be placed on subcu Lovenox given history of breast cancer and high risk. 9. Diet. Unrestricted, lactose intolerant. 10. Ambulation status. The patient has PT and OT ordered. She ambulates with walker at baseline. 11. Disposition. This patient is stable for admission to short-stay unit for continued PT/OT under the care of the medicine service. 12. Code status. The patient is DNR. MOLST is completed with daughter. TIME SPENT: Forty-five minutes were spent on the planning of this admission with over half of that spent directly at the bedside with the patient providing direct patient care. Plan of care was discussed with the patient and her family, and they have no further questions and understand in the next coming days, we will update daughter frequently who is the patient's healthcare proxy. [id number]/[facility] #: [id number] LALITA
[2018-09-12] MEDS: Polyethylene Glycol 3350* 17 GM PACKET PO SCH (23:53)
[2018-09-12] MEDS: Aspirin TAB* 325 MG PO SCH (23:53)
[2018-09-12] MEDS: Acetaminophen TAB* 325 MG PO SCH (23:53)
[2018-09-12] MEDS: Lidocaine PATCH 5%* 1 PATCH TRANSDERM SCH (23:53)
[2018-09-12] MEDS: Enoxaparin(*) 40 MG/0.4 ML SYR SUBCUT SCH (23:54)
[2018-09-12] MEDS: Lidocaine Patch REMOVE* 1 NOTE MISC PATCH OFF SCH (23:55)
[2018-09-13] MEDS: Acetaminophen TAB* 325 MG PO SCH ×6 (03:48→23:48)
[2018-09-13 04:10] LABS: Urine Appearance Cloudy; Urine Bacteria 1+ (Absent); Urine Bilirubin Negative (Negative); Urine Blood 1+ (Negative); Urine Color Yellow; Urine Glucose Negative (Negative); Urine Ketones Trace (Negative); Urine Nitrite Positive (Negative); Urine Protein Negative (Negative); Urine Red Blood Cell 1+(3-5/hpf) (Absent); Urine Specific Gravity 1.024 (1.010-1.030); Urine Urobilinogen Negative (Negative); Urine White Blood Cell 3+(>20/hpf) (Absent)
--- NOTE | 2018-09-13 08:02 | PN ---
Subjective Date of Service: 09/13/18 Interval History: HD # 2 on 09/13 82-year-old female with a past medical history of Pick disease, frequent falls, status post aortic valve replacement, hypertension, hyperlipidemia, hypothyroidism who presented after a mechanical fall on 09/12/18 with a left displaced humeral fracture that will alter significantly the patient's baseline function. Overnight, no acute events, VSS Labs: Stable This afternoon seen pain is minimal unless moving and she understands no surgical options. Ortho to discuss follow up plan, will likely need TREY and daughter working with d/c planning. Pt herself is pleasant without any questions , needs freuqent reminding. Objective Active Medications: Acetaminophen (Tylenol Tab*) 650 mg PO Q4H [facility] Last Admin: 09/13/18 03:48 Dose: 650 mg Aspirin (Aspirin Tab*) 325 mg PO BEDTIME [facility] Last Admin: 09/12/18 23:53 Dose: 325 mg Atorvastatin Calcium (Lipitor*) 10 mg PO 1700 [facility] Cholecalciferol (Vitamin D Tab*) 1,000 units PO DAILY [facility] Enoxaparin Sodium (Lovenox(*)) 40 mg SUBCUT Q24H [facility] Last Admin: 09/12/18 23:54 Dose: 40 mg Levothyroxine Sodium (Synthroid Tab*) 50 mcg PO DAILY [facility] Lidocaine (Lidoderm 5% Patch*) 1 patch TRANSDERM DAILY@2000 [facility] Last Admin: 09/12/18 23:53 Dose: 1 patch Losartan Potassium (Cozaar Tab*) 25 mg PO DAILY [facility] Oxycodone HCl (Roxycodone Tab*) 5 mg PO Q8H PRN PRN Reason: DISCOMFORT Pharmacy Profile Note (Lidocaine Patch Remove*) 1 note PATCH OFF 0800 [facility] Last Admin: 09/12/18 23:55 Dose: Not Given Polyethylene Glycol/Electrolytes (Miralax*) 17 gm PO 0800,2100 [facility] Last Admin: 09/12/18 23:53 Dose: 17 gm Rivastigmine (Exelon Patch(Nf)) 1 patch TRANSDERM DAILY [facility] Sertraline HCl (Zoloft*) 25 mg PO DAILY [facility] Vital Signs - 8 hr 09/13/18 09/13/18 01:33 04:05 Temperature 97.7 F Pulse Rate 98 Respiratory 19 18 Rate Blood Pressure 152/65 (mmHg) O2 Sat by Pulse 96 Oximetry Oxygen Devices in Use Now: None Appearance: Elderly woman in NAD Eyes: No Scleral Icterus Ears/Nose/Mouth/Throat: NL Teeth, Lips, Gums, Clear Oropharnyx Neck: NL Appearance and Movements; NL JVP Respiratory: Symmetrical Chest Expansion and Respiratory Effort, Clear to Auscultation Cardiovascular: NL Sounds; No Murmurs; No JVD, RRR Abdominal: No Hepatosplenomegaly, - - Mild distention Lymphatic: No Cervical Adenopathy, No Axillary Adenopathy Extremities: - - L arm in sling with bruising on Linterior portion over biceps Skin: No Rash or Ulcers Neurological: - - Oriented to self, place, not event or date Result Diagrams: 09/12/18 16:39 09/13/18 10:30 Microbiology and Other Data: Microbiology 09/13/18 01:20 Nasal Screen MRSA (PCR) - Final Nasal Mrsa Not Detected Assess/Plan/Problems-Billing Assessment: 82-year-old female with a past medical history of Pick disease, frequent falls, status post aortic valve replacement, hypertension, hyperlipidemia, hypothyroidism who presented after a mechanical fall on 09/12/18 with a left displaced humeral fracture that will alter significantly the patient's baseline function. - Patient Problems (1) Left humeral fracture Current Visit: Yes Status: Acute Code(s): S42.302A - UNSP FRACTURE OF SHAFT OF HUMERUS, LEFT ARM, INIT SNOMED Code(s): 37773948 Comment: - Non operative - PT/OT, likely to TREY - Follow up in ortho clinic 7-10 days for serial radiograph, sling for now - Pain control with ATC Tylenol, PRN Tramadol and oxy (2) Pick's disease Current Visit: Yes Status: Acute Code(s): G31.01 - PICK'S DISEASE; F02.80 - DEMENTIA IN OTH DISEASES CLASSD ELSWHR W/O BEHAVRL DISTURB SNOMED Code(s): 35874050 Comment: - Exelon patch - Low dose Sertraline (3) Hypertension Current Visit: Yes Status: Acute Code(s): I10 - ESSENTIAL (PRIMARY) HYPERTENSION SNOMED Code(s): 32684353 Comment: - Poor contorl, likely 2/2 to pain, increase Losartan, start Amlodipine (4) Hypothyroid Current Visit: Yes Status: Acute Code(s): E03.9 - HYPOTHYROIDISM, UNSPECIFIED SNOMED Code(s): 48509859 Comment: - Home Synthroid (5) Frequent falls Current Visit: Yes Status: Acute Code(s): R29.6 - REPEATED FALLS SNOMED Code(s): 065287548 Comment: - PT OT Ambulates with walker at baseline - Daughter concerned may need SNF assisted, start with TREY advance to placement PRN (6) DVT prophylaxis Current Visit: Yes Status: Acute Code(s): Z29.9 - ENCOUNTER FOR PROPHYLACTIC MEASURES, UNSPECIFIED SNOMED Code(s): 239215367 Comment: - High risk, hx of breast ca, lovenox (7) DNR (do not resuscitate) Current Visit: Yes Status: Acute Status and Disposition: Inpatient
[2018-09-13] MEDS: Polyethylene Glycol 3350* 17 GM PACKET PO SCH ×2 (08:17→21:43)
[2018-09-13] MEDS: Cholecalciferol TAB* 1000 UNITS PO SCH (08:17)
[2018-09-13] MEDS: Levothyroxine TAB* 50 MCG TAB PO SCH (08:18)
[2018-09-13] MEDS: CMC:Rivastigmine PATCH 9.5 MG(NF) PATCH TRANSDERM SCH (08:18)
[2018-09-13] MEDS: Sertraline* 25 MG TAB PO SCH (08:18)
[2018-09-13] MEDS: Lidocaine Patch REMOVE* 1 NOTE MISC PATCH OFF SCH (08:42)
[2018-09-13] MEDS ORDERED: Losartan TAB* 25 MG PO SCH (09:00)
[2018-09-13 11:07] LABS: BUN/Creatinine Ratio 34.4 (8-20); Calcium 8.6 mg/dL (8.6-10.3); EGFR African American 113.3 (>60); EGFR Non-African American 93.7 (>60); Potassium 3.5 mmol/L (3.5-5.0)
[2018-09-13] MEDS ORDERED: oxyCODONE TAB* 5 MG TAB PO PRN (14:49)
[2018-09-13] MEDS ORDERED: traMADol TAB* 50 MG PO SCH (15:00)
[2018-09-13] MEDS ORDERED: traMADol TAB* 50 MG PO PRN (15:05)
[2018-09-13] MEDS: Losartan TAB* 25 MG PO SCH (16:34)
[2018-09-13] MEDS: amLODIPine TAB* 5 MG PO SCH (16:35)
[2018-09-13] MEDS: Atorvastatin* 10 MG TAB PO SCH (16:35)
--- NOTE | 2018-09-13 16:35 | CONS ---
ORTHOPEDIC CONSULTATION: DATE OF CONSULT: 09/13/18. ATTENDING PROVIDER: Dr. Brittany Peacock. ATTENDING ORTHOPEDIC PROVIDER: Dr. Nadeem Sexton. CHIEF ORTHOPEDIC COMPLAINT: Left upper extremity pain. 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 She lost her balance and fell on a nondominant outstretched left upper extremity. She was brought to the emergency department via ambulance and workup has indicated an impacted mildly displaced fracture of the left proximal humerus. She has been admitted to the hospitalist service with likely need for higher level of care with rehabilitation. PAST MEDICAL HISTORY: Significant for Pick's disease, osteopenia, aortic valve disease with replacement, essential hypertension, BPPV, overactive bladder, history of breast cancer, hypothyroidism. PAST SURGICAL HISTORY: Aortic valve replacement, right mastectomy with prosthesis, left breast lumpectomy. CURRENT MEDICATIONS ON ADMISSION: 1. Acetaminophen 2. Fexofenadine. 3. Fluticasone nasal spray. 4. Montelukast. 5. Multivitamin. 6. [place] fish oil tablet. 7. Aspirin 325 daily. 8. Vitamin D3. 9. Levothyroxine. 10. Losartan. 11. Polyethylene glycol. 12. Rivastigmine patch. 13. Sertraline. 14. Simvastatin. ALLERGIES: She has allergies to CELEBREX, ERYTHROMYCIN, LACTOSE, LATEX, LEVAQUIN, METHYLPREDNISOLONE, NSAIDS, PEANUTS, SUDAFED, TOMATOES, CRUSTACEANS, EXELON PATCH. FAMILY HISTORY: Mother with a history of heart disease. Father from stroke. SOCIAL HISTORY: Lives at [facility]. She denies prior use of tobacco or drug use. Minimal alcohol. REVIEW OF SYSTEMS: She denies recent loss of consciousness, lightheadedness, dizziness, shortness of breath, chest pain, palpitations, gastrointestinal or genitourinary problems. PHYSICAL EXAM: She is lying in bed supine, pleasant and cooperative, mildly aphasic, daughter present. Examination of the left upper extremity reveals moderate swelling with some mild ecchymosis to the anterior upper arm. She has a small abrasion on the lateral aspect of her elbow. She is moving all of her digits freely. She has full sensation and motion of her fingers and wrist. DIAGNOSTIC STUDIES: X-ray examination of the left upper extremity reveals an impacted mildly displaced comminuted proximal humerus fracture in relatively stable alignment. IMPRESSION: Proximal humerus fracture, left upper extremity as above. PLAN: The patient is currently in a shoulder sling, which she will wear for comfort and support. We will treat her at this time nonoperatively. She may remove the sling as she is able to tolerate to extend her elbow daily. Otherwise, in sling for support. We recommend a followup in the office in 7 to 10 days with an x-ray of the left shoulder. She will be nonweightbearing on the left upper extremity as well. All of the daughter's and the patient's questions were answered. She will follow up with Dr. Sexton in the clinic. YONY MELTON [id number]/[facility] #: [id number] LALITA
[2018-09-13] MEDS: Enoxaparin(*) 40 MG/0.4 ML SYR SUBCUT SCH (20:09)
[2018-09-13] MEDS: Lidocaine PATCH 5%* 1 PATCH TRANSDERM SCH (20:09)
[2018-09-13] MEDS: Aspirin TAB* 325 MG PO SCH (21:43)
[2018-09-14] MEDS: Acetaminophen TAB* 325 MG PO SCH ×5 (03:36→19:28)
[2018-09-14] MEDS: Ondansetron INJ* 2 MG/ML VIAL IV PRN ×3 (05:27→19:04)
[2018-09-14] MEDS: Sertraline* 25 MG TAB PO SCH (09:19)
[2018-09-14] MEDS: Cholecalciferol TAB* 1000 UNITS PO SCH (09:19)
[2018-09-14] MEDS: Levothyroxine TAB* 50 MCG TAB PO SCH (09:19)
[2018-09-14] MEDS: Losartan TAB* 25 MG PO SCH (09:19)
[2018-09-14] MEDS: amLODIPine TAB* 5 MG PO SCH (09:19)
[2018-09-14] MEDS: CMC:Rivastigmine PATCH 9.5 MG(NF) PATCH TRANSDERM SCH (09:20)
[2018-09-14] MEDS: Polyethylene Glycol 3350* 17 GM PACKET PO SCH ×2 (09:20→20:48)
[2018-09-14] MEDS: Lidocaine Patch REMOVE* 1 NOTE MISC PATCH OFF SCH (09:27)
--- NOTE | 2018-09-14 12:30 | PN ---
Progress Note - Progress Note Date of Service: 09/14/18 SOAP: Subjective: []Patient seen at bedside. She feels well, left upper arm is painful worse with any movement. Denies CP, SOB, dizziness. Objective: []General: NAD LUE: Sling in place, again seen in moderate swelling and mild ecchymosis of anterior upper arm. Sensation is intact to light touch throughout the left upper extremity. Able to flex and extend wrist and digits. Okay, thumbs up signs intact. Assessment: []Left humeral head fracture Plan: []NWB LUE LUE sling, may remove to extend elbow daily F/U Dr Sexton in 1 week for xrays Vital Signs Temp 98.6 F 09/14/18 11:36 Pulse 98 09/14/18 11:36 Resp 15 09/14/18 11:36 BP 122/74 09/14/18 11:36 Pulse Ox 94 09/14/18 11:36 Intake & Output 09/13/18 09/14/18 09/14/18 18:59 06:59 18:59 Intake Total 560 450 480 Output Total 200 250 100 Balance 360 200 380 Weight 138 lb 4.8 oz Intake: Oral 560 450 480 Output: Urine 200 250 100 Other: Estimated Void Medium Large # Bowel Movements 0 # Voids 1 1 Laboratory Last Values WBC 11.5 10^3/uL (3.5-10.8) H 09/12/18 16:39 RBC 3.94 10^6 /uL (3.70-4.87) 09/12/18 16:39 Hgb 12.2 g/dL (12.0-16.0) 09/12/18 16:39 Hct 37 % (35-47) 09/12/18 16:39 MCV 93 fL (80-97) 09/12/18 16:39 MCH 31 pg (27-31) 09/12/18 16:39 MCHC 33 g/dL (31-36) 09/12/18 16:39 RDW 14 % (10.5-15) 09/12/18 16:39 Plt Count 260 10^3/uL (150-450) 09/12/18 16:39 MPV 8.7 fL (7.4-10.4) 09/12/18 16:39 Neut % (Auto) 67.6 % 09/12/18 16:39 Lymph % (Auto) 22.5 % 09/12/18 16:39 Milam % (Auto) 8.3 % 09/12/18 16:39 Eos % (Auto) 1.1 % 09/12/18 16:39 Baso % (Auto) 0.5 % 09/12/18 16:39 Absolute Neuts (auto) 7.8 10^3/ul (1.5-7.7) H 09/12/18 16:39 Absolute Lymphs (auto) 2.6 10^3/ul (1.0-4.8) 09/12/18 16:39 Absolute Monos (auto) 1.0 10^3/ul (0-0.8) H 09/12/18 16:39 Absolute Eos (auto) 0.1 10^3/ul (0-0.6) 09/12/18 16:39 Absolute Basos (auto) 0.1 10^3/ul (0-0.2) 09/12/18 16:39 Absolute Nucleated RBC 0.0 10^3/ul 09/12/18 16:39 Nucleated RBC % 0.1 09/12/18 16:39 Sodium 134 mmol/L (135-145) L 09/13/18 10:30 Potassium 3.5 mmol/L (3.5-5.0) 09/13/18 10:30 Chloride 101 mmol/L (101-111) 09/13/18 10:30 Carbon Dioxide 27 mmol/L (22-32) 09/13/18 10:30 Anion Gap 6 mmol/L (2-11) 09/13/18 10:30 BUN 21 mg/dL (6-24) 09/13/18 10:30 Creatinine 0.61 mg/dL (0.51-0.95) 09/13/18 10:30 Est GFR ( Amer) 113.3 (>60) 09/13/18 10:30 Est GFR (Non-Af Amer) 93.7 (>60) 09/13/18 10:30 BUN/Creatinine Ratio 34.4 (8-20) H 09/13/18 10:30 Glucose 155 mg/dL (70-100) H 09/13/18 10:30 Lactic Acid 0.8 mmol/L (0.5-2.0) 09/12/18 16:39 Calcium 8.6 mg/dL (8.6-10.3) 09/13/18 10:30 Magnesium 2.2 mg/dL (1.9-2.7) 09/12/18 16:39 Total Bilirubin 0.40 mg/dL (0.2-1.0) 09/12/18 16:39 AST 20 U/L (13-39) 09/12/18 16:39 ALT 18 U/L (7-52) 09/12/18 16:39 Alkaline Phosphatase 68 U/L (34-104) 09/12/18 16:39 Total Creatine Kinase 69 U/L (10-223) 09/12/18 16:39 Troponin I 0.00 ng/mL (<0.04) 09/12/18 16:39 C-Reactive Protein 1.37 mg/L (<8.01) 09/12/18 16:39 Total Protein 7.1 g/dL (6.4-8.9) 09/12/18 16:39 Albumin 4.1 g/dL (3.2-5.2) 09/12/18 16:39 Globulin 3.0 g/dL (2-4) 09/12/18 16:39 Albumin/Globulin Ratio 1.4 (1-3) 09/12/18 16:39 TSH 3.16 mcIU/mL (0.34-5.60) 09/12/18 16:39 Urine Color Yellow 09/13/18 03:57 Urine Appearance Cloudy 09/13/18 03:57 Urine pH 5.0 (5-9) 09/13/18 03:57 Ur Specific Bonnie 1.024 (1.010-1.030) 09/13/18 03:57 Urine Protein Negative (Negative) 09/13/18 03:57 Urine Ketones Trace (Negative) A 09/13/18 03:57 Urine Blood 1+ (Negative) A 09/13/18 03:57 Urine Nitrate Positive (Negative) A 09/13/18 03:57 Urine Bilirubin Negative (Negative) 09/13/18 03:57 Urine Urobilinogen Negative (Negative) 09/13/18 03:57 Ur Leukocyte Esterase 2+ (Negative) A 09/13/18 03:57 Urine WBC (Auto) 3+(>20/hpf) (Absent) A 09/13/18 03:57 Urine RBC (Auto) 1+(3-5/hpf) (Absent) A 09/13/18 03:57 Urine Bacteria 1+ (Absent) A 09/13/18 03:57 Urine Glucose Negative (Negative) 09/13/18 03:57 Urine Ascorbic Acid * (Negative) A 09/13/18 03:57
--- NOTE | 2018-09-14 14:05 | PN ---
Subjective Date of Service: 09/14/18 Interval History: HD # 2 on 09/13 82-year-old female with a past medical history of Pick disease, frequent falls, status post aortic valve replacement, hypertension, hyperlipidemia, hypothyroidism who presented after a mechanical fall on 09/12/18 with a left displaced humeral fracture that will alter significantly the patient's baseline function. Overnight, no acute events, VSS Labs: Stable, Ucx + with E Coli This afternoon seen pain is minimal unless moving working with PT, awaiting TREY Objective Active Medications: Acetaminophen (Tylenol Tab*) 650 mg PO Q4H [facility] Last Admin: 09/14/18 11:20 Dose: Not Given Amlodipine Besylate (Norvasc Tab*) 10 mg PO DAILY [facility] Last Admin: 09/14/18 09:19 Dose: 10 mg Aspirin (Aspirin Tab*) 325 mg PO BEDTIME [facility] Last Admin: 09/13/18 21:43 Dose: 325 mg Atorvastatin Calcium (Lipitor*) 10 mg PO 1700 [facility] Last Admin: 09/13/18 16:35 Dose: 10 mg Cholecalciferol (Vitamin D Tab*) 1,000 units PO DAILY [facility] Last Admin: 09/14/18 09:19 Dose: 1,000 units Enoxaparin Sodium (Lovenox(*)) 40 mg SUBCUT Q24H [facility] Last Admin: 09/13/18 20:09 Dose: 40 mg Ceftriaxone Sodium 1 gm/ (Sodium Chloride) 50 mls @ 200 mls/hr IVPB Q24H [facility] Levothyroxine Sodium (Synthroid Tab*) 50 mcg PO DAILY [facility] Last Admin: 09/14/18 09:19 Dose: 50 mcg Lidocaine (Lidoderm 5% Patch*) 1 patch TRANSDERM DAILY@1999 [facility] Last Admin: 09/13/18 20:09 Dose: 1 patch Losartan Potassium (Cozaar Tab*) 50 mg PO DAILY [facility] Last Admin: 09/14/18 09:19 Dose: 50 mg Ondansetron HCl (Zofran Inj*) 4 mg IV Q4H PRN PRN Reason: NAUSEA/VOMITING Last Admin: 09/14/18 05:27 Dose: 4 mg Oxycodone HCl (Roxycodone Tab*) 5 mg PO Q6H PRN PRN Reason: DISCOMFORT Last Admin: 09/13/18 16:35 Dose: 5 mg Pharmacy Profile Note (Lidocaine Patch Remove*) 1 note PATCH OFF 0800 [facility] Last Admin: 09/14/18 09:27 Dose: 1 note Polyethylene Glycol/Electrolytes (Miralax*) 17 gm PO 0800,2100 [facility] Last Admin: 09/14/18 09:20 Dose: 17 gm Rivastigmine (Exelon Patch(Nf)) 1 patch TRANSDERM DAILY [facility] Last Admin: 09/14/18 09:20 Dose: 1 patch Sertraline HCl (Zoloft*) 25 mg PO DAILY [facility] Last Admin: 09/14/18 09:19 Dose: 25 mg Tramadol HCl (Ultram*) 50 mg PO Q8H PRN PRN Reason: PAIN Vital Signs - 8 hr 09/14/18 09/14/18 09/14/18 07:40 07:42 11:36 Temperature 98.2 F 98.6 F Pulse Rate 89 98 Respiratory 16 17 15 Rate Blood Pressure 157/97 122/74 (mmHg) O2 Sat by Pulse 93 94 Oximetry Oxygen Devices in Use Now: None Appearance: Pleasantly demented woman in NAD Ears/Nose/Mouth/Throat: NL Teeth, Lips, Gums Neck: NL Appearance and Movements; NL JVP Respiratory: Symmetrical Chest Expansion and Respiratory Effort Cardiovascular: NL Sounds; No Murmurs; No JVD, RRR Abdominal: NL Sounds; No Tenderness; No Distention, No Hepatosplenomegaly Lymphatic: No Cervical Adenopathy Extremities: No Edema, - - L arm in sling Skin: No Rash or Ulcers Neurological: - - self Result Diagrams: 09/12/18 16:39 09/13/18 10:30 Microbiology and Other Data: Microbiology 09/13/18 01:20 Nasal Screen MRSA (PCR) - Final Nasal Mrsa Not Detected Assess/Plan/Problems-Billing Assessment: 82-year-old female with a past medical history of Pick disease, frequent falls, status post aortic valve replacement, hypertension, hyperlipidemia, hypothyroidism who presented after a mechanical fall on 09/12/18 with a left displaced humeral fracture that will alter significantly the patient's baseline function. - Patient Problems (1) Left humeral fracture Current Visit: Yes Status: Acute Code(s): S42.302A - UNSP FRACTURE OF SHAFT OF HUMERUS, LEFT ARM, INIT SNOMED Code(s): 94354467 Comment: - Non operative - PT/OT, likely to TREY - Follow up in ortho clinic 7-10 days for serial radiograph, sling for now - Pain control with ATC Tylenol, PRN Tramadol and oxy (2) UTI (urinary tract infection) Current Visit: Yes Status: Acute Comment: - E Coli, start CTX Day 1/3 on , can transition to oral if d/c prior (3) Pick's disease Current Visit: Yes Status: Acute Code(s): G31.01 - PICK'S DISEASE; F02.80 - DEMENTIA IN OTH DISEASES CLASSD ELSWHR W/O BEHAVRL DISTURB SNOMED Code(s): 50658782 Comment: - Exelon patch - Low dose Sertraline (4) Hypertension Current Visit: Yes Status: Acute Code(s): I10 - ESSENTIAL (PRIMARY) HYPERTENSION SNOMED Code(s): 97639895 Comment: - Poor contorl, likely 2/2 to pain, increase Losartan, start Amlodipine (5) Hypothyroid Current Visit: Yes Status: Acute Code(s): E03.9 - HYPOTHYROIDISM, UNSPECIFIED SNOMED Code(s): 55633001 Comment: - Home Synthroid (6) Frequent falls Current Visit: Yes Status: Acute Code(s): R29.6 - REPEATED FALLS SNOMED Code(s): 339398205 Comment: - PT OT Ambulates with walker at baseline - Daughter concerned may need SNF maintenance construction helper, start with TREY advance to placement PRN (7) DVT prophylaxis Current Visit: Yes Status: Acute Code(s): Z29.9 - ENCOUNTER FOR PROPHYLACTIC MEASURES, UNSPECIFIED SNOMED Code(s): 047860068 Comment: - High risk, hx of breast ca, lovenox (8) DNR (do not resuscitate) Current Visit: Yes Status: Acute Status and Disposition: Inpatient
[2018-09-14] MEDS: cefTRIAXone(*) 1 GM in NS 0.9% 50 ML* 50 ML IVPB SCH (15:17)
[2018-09-14] MEDS: Atorvastatin* 10 MG TAB PO SCH (16:34)
--- NOTE | 2018-09-14 17:36 | PN ---
Hospitalist Progress Note Date of Service: 09/14/18 Off Service Note: 82-year-old female with a past medical history of Pick disease, frequent falls, status post aortic valve replacement, hypertension, hyperlipidemia, hypothyroidism who presented after a mechanical fall on 09/12/18 with a left displaced humeral fracture that will alter significantly the patient's baseline Hospital stay c/b UTI Dispo: Just awaiting TREY
[2018-09-14] MEDS: Lidocaine PATCH 5%* 1 PATCH TRANSDERM SCH (19:28)
[2018-09-14] MEDS: Aspirin TAB* 325 MG PO SCH (20:48)
[2018-09-14] MEDS: Enoxaparin(*) 40 MG/0.4 ML SYR SUBCUT SCH (20:48)
[2018-09-15] MEDS: Acetaminophen TAB* 325 MG PO SCH ×7 (00:27→23:30)
[2018-09-15] MEDS: CMC:Rivastigmine PATCH 9.5 MG(NF) PATCH TRANSDERM SCH (08:11)
[2018-09-15] MEDS: Lidocaine Patch REMOVE* 1 NOTE MISC PATCH OFF SCH (08:12)
[2018-09-15] MEDS: Levothyroxine TAB* 50 MCG TAB PO SCH (08:13)
[2018-09-15] MEDS: Sertraline* 25 MG TAB PO SCH (08:13)
[2018-09-15] MEDS: Cholecalciferol TAB* 1000 UNITS PO SCH (08:13)
[2018-09-15] MEDS: Losartan TAB* 25 MG PO SCH (08:13)
[2018-09-15] MEDS: Polyethylene Glycol 3350* 17 GM PACKET PO SCH ×2 (08:13→19:56)
[2018-09-15] MEDS: amLODIPine TAB* 5 MG PO SCH (08:13)
[2018-09-15] MEDS: cefTRIAXone(*) 1 GM in NS 0.9% 50 ML* 50 ML IVPB SCH (15:18)
[2018-09-15] MEDS: Atorvastatin* 10 MG TAB PO SCH (16:47)
--- NOTE | 2018-09-15 17:59 | PN ---
Subjective Date of Service: 09/15/18 Interval History: HOSPITALIST PROGRESS NOTE Patient seen and examined at bedside. Care reviewed and d/w Nini Zepeda RN. Pleasantly confused lady, offers no complaints. Denies pain at this time. Family History: Unchanged from Admission Social History: Unchanged from Admission Past Medical History: Unchanged from Admission Objective Active Medications: Acetaminophen (Tylenol Tab*) 650 mg PO Q4H [facility] Last Admin: 09/15/18 15:18 Dose: 650 mg Amlodipine Besylate (Norvasc Tab*) 10 mg PO DAILY [facility] Last Admin: 09/15/18 08:13 Dose: 10 mg Aspirin (Aspirin Tab*) 325 mg PO BEDTIME [facility] Last Admin: 09/14/18 20:48 Dose: 325 mg Atorvastatin Calcium (Lipitor*) 10 mg PO 1700 [facility] Last Admin: 09/15/18 16:47 Dose: 10 mg Cholecalciferol (Vitamin D Tab*) 1,000 units PO DAILY [facility] Last Admin: 09/15/18 08:13 Dose: 1,000 units Enoxaparin Sodium (Lovenox(*)) 40 mg SUBCUT Q24H [facility] Last Admin: 09/14/18 20:48 Dose: 40 mg Ceftriaxone Sodium 1 gm/ (Sodium Chloride) 50 mls @ 200 mls/hr IVPB Q24H [facility] Last Admin: 09/15/18 15:18 Dose: 200 mls/hr Levothyroxine Sodium (Synthroid Tab*) 50 mcg PO DAILY [facility] Last Admin: 09/15/18 08:13 Dose: 50 mcg Lidocaine (Lidoderm 5% Patch*) 1 patch TRANSDERM DAILY@1999 [facility] Last Admin: 09/14/18 19:28 Dose: 1 patch Losartan Potassium (Cozaar Tab*) 50 mg PO DAILY [facility] Last Admin: 09/15/18 08:13 Dose: 50 mg Ondansetron HCl (Zofran Inj*) 4 mg IV Q4H PRN PRN Reason: NAUSEA/VOMITING Last Admin: 09/14/18 19:04 Dose: 4 mg Oxycodone HCl (Roxycodone Tab*) 5 mg PO Q6H PRN PRN Reason: DISCOMFORT Last Admin: 09/13/18 16:35 Dose: 5 mg Pharmacy Profile Note (Lidocaine Patch Remove*) 1 note PATCH OFF 0800 [facility] Last Admin: 09/15/18 08:12 Dose: 1 note Pharmacy Profile Note (Rivastigmine Patch Remove*) 1 note PATCH OFF 08 [facility] Polyethylene Glycol/Electrolytes (Miralax*) 17 gm PO 0800,2100 [facility] Last Admin: 09/15/18 08:13 Dose: 17 gm Rivastigmine (Exelon Patch(Nf)) 1 patch TRANSDERM DAILY [facility] Last Admin: 09/15/18 08:11 Dose: 1 patch Sertraline HCl (Zoloft*) 25 mg PO DAILY [facility] Last Admin: 09/15/18 08:13 Dose: 25 mg Tramadol HCl (Ultram*) 50 mg PO Q8H PRN PRN Reason: PAIN Last Admin: 09/14/18 16:34 Dose: 50 mg Vital Signs - 8 hr 09/15/18 09/15/18 11:19 15:59 Temperature 98.2 F 98.1 F Pulse Rate 90 91 Respiratory 16 18 Rate Blood Pressure 101/48 158/79 (mmHg) O2 Sat by Pulse 94 95 Oximetry Oxygen Devices in Use Now: None Appearance: Pleasantly confused elderly lady sitting up in a chair in [facility]. Eyes: No Scleral Icterus Ears/Nose/Mouth/Throat: Mucous Membranes Moist Neck: Trachea Midline Respiratory: Symmetrical Chest Expansion and Respiratory Effort, Clear to Auscultation Cardiovascular: RRR - Normal S1 and S2 Extremities: - - left arm in sling. Mild LUE edema, sensation intact. Can move wrist and fingers. Neurological: - - AAOx2 (self and place) Result Diagrams: 09/12/18 16:39 09/13/18 10:30 Assess/Plan/Problems-Billing Assessment: Mrs Wilkinson is an 82-year-old female with a past medical history of Pick disease, frequent falls, status post aortic valve replacement, hypertension, hyperlipidemia, hypothyroidism who presented after a mechanical fall on with a left displaced humeral fracture. - Patient Problems (1) Left humeral fracture Comment: - Non operative management as per Ortho. - NWB LUE. - Outpatient f/u with Dr Sexton in 1 week. (2) UTI (urinary tract infection) Comment: - Urine culture growing pansensitive E Coli - change ceftriaxone to Ceftin. (3) Pick's disease Comment: - Continue low dose Sertraline and Exelon patch. (4) Hypertension Comment: - Was uncontrolled before, likely due to pain, but now trending down as pain is better controlled. - Will continue Losartan and d/c Amlodipine. (5) Hypothyroid Comment: - Continue levothyroxine. (6) DVT prophylaxis Comment: - Lovenox. (7) DNR (do not resuscitate) Status and Disposition: Inpatient. Anticipate d/c to [facility] in AM.
[2018-09-15] MEDS: Ondansetron INJ* 2 MG/ML VIAL IV PRN (19:28)
[2018-09-15] MEDS: ceFUROXime TAB(*) 250 MG PO SCH (19:55)
[2018-09-15] MEDS: Aspirin TAB* 325 MG PO SCH (19:55)
[2018-09-15] MEDS: Lidocaine PATCH 5%* 1 PATCH TRANSDERM SCH (19:56)
[2018-09-15] MEDS: Enoxaparin(*) 40 MG/0.4 ML SYR SUBCUT SCH (19:56)
[2018-09-16] MEDS: Acetaminophen TAB* 325 MG PO SCH ×3 (03:46→11:48)
[2018-09-16] MEDS: Polyethylene Glycol 3350* 17 GM PACKET PO SCH (07:33)
[2018-09-16] MEDS: Losartan TAB* 25 MG PO SCH (07:33)
[2018-09-16] MEDS: ceFUROXime TAB(*) 250 MG PO SCH (07:33)
[2018-09-16] MEDS: Cholecalciferol TAB* 1000 UNITS PO SCH (07:33)
[2018-09-16] MEDS: Lidocaine Patch REMOVE* 1 NOTE MISC PATCH OFF SCH (07:34)
[2018-09-16] MEDS: Levothyroxine TAB* 50 MCG TAB PO SCH (07:34)
[2018-09-16] MEDS: Sertraline* 25 MG TAB PO SCH (07:34)
[2018-09-16] MEDS: CMC:Rivastigmine PATCH 9.5 MG(NF) PATCH TRANSDERM SCH (07:35)
[2018-09-16] MEDS ORDERED: RIVASTIGMINE REMOVE PATCH OFF SCH (08:59)
--- NOTE | 2018-09-16 09:53 | DS ---
CC: Dr. Grey; Dr. Sexton; With patient to [facility].* DISCHARGE SUMMARY: DATE OF ADMISSION: 09/12/18 DATE OF DISCHARGE: 09/16/18 PRIMARY CARE PROVIDER: Dr. Grey. CONSULTING ORTHOPEDIST: Dr. Sexton. DISCHARGE DIAGNOSES: 1. Left humeral fracture. 2. Escherichia coli urinary tract infection, present on admission. 3. Frequent falls. SECONDARY DIAGNOSES: 1. Pick's disease. 2. Osteopenia. 3. Status post aortic valve replacement. 4. Hypertension. 5. Overactive bladder. 6. History of breast cancer. 7. Hypothyroidism. PAST SURGICAL HISTORY: 1. Status post aortic valve replacement. 2. Status post right mastectomy. 3. Status post left breast lumpectomy. MEDICATION LIST: 1. Tylenol 500 mg p.o. q.6 hours p.r.n. pain or fever. 2. Aspirin 325 mg p.o. at bedtime. 3. Cefuroxime 250 mg p.o. b.i.d. for 4 more days. 4. Cholecalciferol 1000 units p.o. daily. 5. Lovenox 40 mg subcutaneously daily until the patient is moving more. 6. Fexofenadine 180 mg p.o. daily. 7. Fluticasone nasal spray 50 mcg 2 sprays to both nares daily. 8. Levothyroxine 50 mcg p.o. daily. 9. Lidocaine patch 5% one patch topical daily at 8 p.m., remove 12 hours later. 10. Losartan 50 mg p.o. daily. 11. Montelukast 10 mg p.o. daily. 12. Multivitamin 1 tablet p.o. daily. 13. Fish oil 1 capsule p.o. daily. 14. Ondansetron 4 mg p.o. q.6 hours p.r.n. nausea. 15. MiraLAX 17 g p.o. at 8 a.m. and 9 p.m., hold for loose stools. 16. Rivastigmine patch 9.5 mg 1 patch topical daily. 17. Sertraline 25 mg p.o. daily. 18. Simvastatin 20 mg p.o. daily. 19. Tramadol 50 mg p.o. q.8 hours p.r.n. pain. HOSPITAL COURSE: Ms. Wilkinson is an 82-year-old lady with a past medical history as stated above that presented to the emergency room on 09/12/18 after a mechanical fall. It is described that she fell and landed on her outstretched left arm and immediately developed pain. She resides at [facility] and is described as independent with her activities of daily living. For more details about her presentation, I refer you to her history and physical. Her workup in the emergency room included a CT of the brain that showed no acute intracranial pathology, only chronic small vessel ischemic change. Cervical spine CT that showed osteopenia, degenerative disk disease, and osteoarthritis but no acute osseous injury to the cervical spine. A shoulder x-ray showed a comminuted and displaced fractures of the humeral head on the left. It was felt that the patient would not be able to manage at [facility] to be treated as outpatient, so she was admitted to the hospitalist service for further management. She was seen in consultation by Orthopedics (Dr. Sexton) and the recommendation was for nonoperative management of this humeral head fracture. She may remove the sling as she is able to tolerate to extend her elbow daily but otherwise she should keep the sling for support. She is to be nonweightbearing on the left upper extremity as well and the plan is for her to follow up with Dr. Sexton as outpatient. The patient has a history of hypertension, treated with losartan as outpatient. Initially during the hospital stay, her blood pressure became uncontrolled and this was likely secondary to pain. Amlodipine was added to her regimen but as her pain improved, her blood pressure was trending to the lower side, so the amlodipine was discontinued and she is now controlled with her original losartan only. The patient was seen by Physical Therapy and Occupational Therapy and found to have skill needs. She was offered a bed at [facility] to continue her rehabilitation process and she is medically stable for discharge today. Of note, it is the fact that the patient had an abnormal urinalysis with urine culture that grew E. coli greater than 100,000 colonies. The culture shows that this is a pansensitive E. coli and she is being discharged on Ceftin to complete her treatment. PHYSICAL EXAMINATION: Vital Signs: Temperature 98.3, heart rate is 88, respiratory rate is 17, oxygen saturation 97% on room air, blood pressure is 151 /71. General: The patient is a pleasant elderly lady, sitting up in a chair, in no acute distress. CVS: S1 and S2. Regular rate and rhythm. Chest: Breath sounds present bilaterally with no added sounds. Extremities: The patient's left upper extremity is in a sling with some shoulder area edema and ecchymosis. Sensation is intact on the left upper extremity. She has full range of motion on her wrist and fingers with good pulses and good capillary refill. Neuro: She is alert, awake, and oriented to self and place. Able to move all 4 extremities with limitation of the left upper extremity due to pain. DIET: Regular diet. ACTIVITIES: As tolerated. The patient is nonweightbearing to the left upper extremity. DISPOSITION: [facility]. STATUS WHILE IN THE HOSPITAL: Inpatient. CONDITION AT THE TIME OF DISCHARGE: Fair. Please keep in mind this is a summarized version of this patient's hospital stay. If you need more information, please feel free to call me at [phone] or please obtain the full medical records. TIME SPENT: Approximately 45 minutes was spent to complete this discharge. [id number]/LUIS MIGUEL #: [id number] LALITA
[2018-09-16 11:27] VITALS: BP 154/86
== END 2018-09-16 12:14 | DRG 563 ==
LOC: ED 16:07 → SSU 18:58
PROVIDERS: ADMIT Internal Medicine; ATTEND Internal Medicine
DX: S42.252A Displaced fracture of greater tuberosity of left humerus, initial encounter for closed fracture (principal); N39.0 Urinary tract infection, site not specified; W17.89XA Other fall from one level to another, initial encounter; G31.01 Pick's disease; F02.80 Dementia in other diseases classified elsewhere, unspecified severity, without behavioral disturbance, psychotic disturbance, mood disturbance, and anxiety; I10 Essential (primary) hypertension; J45.909 Unspecified asthma, uncomplicated; E03.9 Hypothyroidism, unspecified; M81.0 Age-related osteoporosis without current pathological fracture; R40.2362 Coma scale, best motor response, obeys commands, at arrival to emergency department; R40.2142 Coma scale, eyes open, spontaneous, at arrival to emergency department; R40.2252 Coma scale, best verbal response, oriented, at arrival to emergency department; M47.892 Other spondylosis, cervical region; M85.88 Other specified disorders of bone density and structure, other site; N32.81 Overactive bladder; E78.5 Hyperlipidemia, unspecified; Z66 Do not resuscitate; Z96.653 Presence of artificial knee joint, bilateral; Z96.649 Presence of unspecified artificial hip joint; R29.6 Repeated falls; B96.20 Unspecified Escherichia coli [E. coli] as the cause of diseases classified elsewhere; H91.90 Unspecified hearing loss, unspecified ear; Z85.3 Personal history of malignant neoplasm of breast; Z88.6 Allergy status to analgesic agent; Z88.1 Allergy status to other antibiotic agents; Y92.009 Unspecified place in unspecified non-institutional (private) residence as the place of occurrence of the external cause; Z91.040 Latex allergy status; Z91.010 Allergy to peanuts; Z88.8 Allergy status to other drugs, medicaments and biological substances; Z91.018 Allergy to other foods; Z95.2 Presence of prosthetic heart valve; Z97.4 Presence of external hearing-aid; Z90.11 Acquired absence of right breast and nipple; Z82.49 Family history of ischemic heart disease and other diseases of the circulatory system; Z82.3 Family history of stroke; Z83.3 Family history of diabetes mellitus; Z92.21 Personal history of antineoplastic chemotherapy; Z92.3 Personal history of irradiation; Z79.82 Long term (current) use of aspirin; Z79.01 Long term (current) use of anticoagulants
CPT/HCPCS: 36415; 70450; 72125; 80048; 80053; 81003; 81015; 82550; 83605; 83735; 84443; 84484; 85025; 86140; 87077; 87086; 87186; 87641; 93005; 99284; A9270-GY; G8978-GP-CK; G8979-GP-CI; G8987-GO-CM; G8988-GO-CI; J0696; J1650; J2405